=== PATIENT | male | born 1950 | race Caucasian/White ===

== ENCOUNTER → 2019-04-06 15:34 | Outpatient (CLI) | payer MEDICARE, OTHER, SELFPAY ==
--- NOTE | ~2019-04-06 | MR_ITS ---
EXAMINATION: MR brain/brain stem wo con EXAM DATE: 04/06/2019 16:27 INDICATION: Migraine frontal headaches. TECHNIQUE: Magnetic resonance imaging (MRI) of the brain/brain stem obtained without contrast. Sagitt al T1, axial diffusion, gradient echo (T2*), T1, T2, FLAIR sequences obtained. There is no prior st udy for comparison. FINDINGS: There are no areas of restricted diffusion to suggest acute infarction. There is no acute hemorrhage seen on the T2*, a hemosiderin sensitive sequence. No intraparenchymal brain mass lesion. There is mild periventricular and subcortical T2/FLAIR signal hyperintensity, nonspecific but probab ly related to small vessel ischemic disease (microangiopathy). There is mild prominence of the sulc i and ventricles related to cerebral atrophy. There are no extra-axial collections. Flow voids are seen in the cerebral arteries on the T2-weighted sequences consistent with their expected patency. The orbits are unremarkable. Soft tissue is unremarkable. Mild left ethmoid mucoperiosteal thickeni ng. IMPRESSION: 1. No acute intracranial findings. 2. Chronic age related findings. Reviewed, dictated and finalized at location B. FICIAL LIMB FITTER
== END ==
PROVIDERS: PCP Family Medicine; Visit Provider Physician Assistant
DX: G43.909 Migraine, unspecified, not intractable, without status migrainosus (principal)
CPT/HCPCS: 70551

== ENCOUNTER 2019-07-25 10:57 | Outpatient (CLI) | payer MEDICARE, OTHER, SELFPAY ==
[2019-07-25 12:05] LABS: Alanine Aminotransferase 108 U/L (4-50); Albumin Level 4.7 g/dL (3.5-5.1); Alkaline Phosphatase 99 U/L (38-126); Aspartate Amino Transferase 100 U/L (17-59); Bilirubin,Total 0.8 mg/dL (0.2-1.3); Blood Urea Nitrogen 15 mg/dL (9-20); Calcium 9.5 mg/dL (8.4-10.2); Carbon Dioxide 31 mmol/L (22-30); Chloride 99 mmol/L (98-107); Estimated Glomerular Filt Rate > 60; Glucose 123 mg/dL (75-110); Potassium 3.9 mmol/L (3.4-5.0); Sodium 137 mmol/L (137-145)
[2019-07-25 12:26] LABS: Hemoglobin A1C 7.4 % (<5.7)
== END 2019-07-25 10:58 | disposition home or self-care (01) ==
LOC: ANHLAB 11:00
PROVIDERS: PCP Family Medicine; Visit Provider Family Medicine
DX: E11.9 Type 2 diabetes mellitus without complications (principal)
CPT/HCPCS: 36415; 80053; 83036

== ENCOUNTER 2019-08-01 12:08 | Outpatient (CLI) | payer MEDICARE, OTHER, SELFPAY ==
[2019-08-01 14:26] LABS: Alanine Aminotransferase 104 U/L (4-50); Albumin Level 4.8 g/dL (3.5-5.1); Alkaline Phosphatase 82 U/L (38-126); Aspartate Amino Transferase 91 U/L (17-59); Bilirubin,Total 0.8 mg/dL (0.2-1.3)
== END 2019-08-01 12:09 | disposition home or self-care (01) ==
PROVIDERS: PCP Family Medicine; Visit Provider Family Medicine
DX: R79.89 Other specified abnormal findings of blood chemistry (principal)
CPT/HCPCS: 36415; 80076

== ENCOUNTER 2019-08-08 10:36 | Outpatient (CLI) | payer MEDICARE, OTHER, SELFPAY ==
[2019-08-08 11:34] LABS: Hematocrit 44.2 % (42.0-52.0); Hemoglobin 14.9 g/dL (14.0-18.0); Mean Corpuscular HGB Conc 33.7 g/dl (32-36); Mean Corpuscular Hemoglobin 30.7 pg (26-34); Mean Corpuscular Volume 91.1 fl (80-100); Mean Platelet Volume 10.6 fl (7.4-10.4); Platelet Count Result 289 k/mm3 (150-375); Red Blood Count 4.85 M/mm3 (4.6-6.20); Red Cell Distribution Width 14.2 % (11.5-14.5); White Blood Count 11.9 K/mm3 (4.5-10.0)
[2019-08-08 11:40] LABS: Alanine Aminotransferase 93 U/L (4-50); Albumin Level 4.7 g/dL (3.5-5.1); Alkaline Phosphatase 94 U/L (38-126); Aspartate Amino Transferase 69 U/L (17-59); Bilirubin,Total 0.9 mg/dL (0.2-1.3); Blood Urea Nitrogen 15 mg/dL (9-20); Calcium 9.4 mg/dL (8.4-10.2); Carbon Dioxide 29 mmol/L (22-30); Chloride 100 mmol/L (98-107); Estimated Glomerular Filt Rate > 60; Glucose 129 mg/dL (75-110); Potassium 3.6 mmol/L (3.4-5.0); Sodium 137 mmol/L (137-145)
[2019-08-08 12:10] LABS: Thyroid Stimulating Hormone 0.848 uIU/mL (0.465-4.680)
[2019-08-08 12:41] LABS: Creatinine Urine 62.6 mg/dL
[2019-08-08 12:50] LABS: Hepatitis B Surface Antigen Negative (Negative)
[2019-08-08 12:56] LABS: HAV RESULT Negative (Negative); Hepatitis B Core IgM Result Negative (Negative)
[2019-08-08 13:02] LABS: MALB Creatinine Ratio < 9.6 mg/g (0-30); Microalbumin Urine Random < 6.0 mg/L (0-16.7)
[2019-08-08 13:07] LABS: Hepatitis C Virus Antibody Negative (Negative)
== END 2019-08-08 10:37 | disposition home or self-care (01) ==
PROVIDERS: Internal Medicine; Physician Assistant; PCP Family Medicine; Visit Provider Family Medicine
DX: R94.5 Abnormal results of liver function studies (principal); R60.0 Localized edema; E11.43 Type 2 diabetes mellitus with diabetic autonomic (poly)neuropathy; I10 Essential (primary) hypertension
CPT/HCPCS: 36415; 80053; 80074; 82043; 82248; 84443; 85027

== ENCOUNTER 2019-08-10 07:49 | Outpatient (CLI) | payer MEDICARE, OTHER, SELFPAY ==
[2019-08-10 12:04] LABS: Total Volume 24 Hour Urine 1050 ml
[2019-08-10 12:09] LABS: Total Protein Urine 24 Hr 115 MG/DAY (28-141); Total Protein Urine Random 11 mg/dL
[2019-08-10 12:16] LABS: Creatinine Urine 79.6 mg/dL; Specific Gravity Ur 1.011
[2019-08-10 12:17] LABS: Creatinine 24 Hour Urine 0.8 gm/24 (1.0-2.0); Total Volume 24 Hour Urine 1050 ml
== END 2019-08-10 07:50 | disposition home or self-care (01) ==
PROVIDERS: PCP Family Medicine; Visit Provider Internal Medicine
DX: R94.5 Abnormal results of liver function studies (principal); R60.0 Localized edema; E11.43 Type 2 diabetes mellitus with diabetic autonomic (poly)neuropathy; I10 Essential (primary) hypertension
CPT/HCPCS: 81050; 82570; 84156

== ENCOUNTER 2020-02-02 09:07 | Emergency (ER) | payer MEDICARE, OTHER, SELFPAY ==
[2020-02-02 09:19] VITALS: BP 145/77; PULSE 82; RESP 16; TEMP 36.5; O2SAT 98
--- NOTE | 2020-02-02 09:27 | ED.URI ---
HPI - URI/Sore Throat General Chief Complaint: Upper Respiratory Infection Stated Complaint: Cold Time Seen by Provider: 02/02/20 09:27 Source: patient and RN notes reviewed Mode of arrival: ambulatory Limitations: no limitations History of Present Illness HPI Narrative: 69-year-old male who presents to express care with complaints of cough with expectoration of yellow green mucous for the past week with some runny nose. Patient states that he went outside on day when weather had warmed some with a t shirt on and was outside for about 30 minutes and has developed these symptoms. Patient states that he has not had a know fever, chills or sweats. Patient denies any shortness of breath or wheezing, denies any sore throat or any ear pain. Patient voices concern with getting his ill due to her having bone cancer and is immunocompromised. He states that he goes to grocery store masked but does not go out anywhere else and has been wearing mask also around his spouse. MD elicited complaint: cough, rhinorrhea and other (chest congestion) Pertinent past history: seasonal allergies and other (TACHO) Onset (ago): week(s) (1) Consistency: progressively worsening Severity: moderate Description of mucous: yellow and green Able to tolerate fluids by mouth: Yes Exacerbating factors: exertion Relieving factors: nothing Context: other (outside underdressed) Associated symptoms: rhinorrhea and cough (productive) Treatments prior to arrival: other (Nyquil) Related Data Home Medications Medication Instructions Recorded Confirmed acetaminophen 300 mg-codeine 30 mg 1 tablet PO Q6H PRN 03/28/19 07/25/19 tablet amlodipine 5 mg tablet 5 mg PO DAILY 03/28/19 07/25/19 aspirin 325 mg tablet 325 mg PO DAILY 03/28/19 07/25/19 atenolol 25 mg tablet 25 mg PO DAILY 03/28/19 07/25/19 atorvastatin 10 mg tablet 10 mg PO DAILY 03/28/19 07/25/19 cholecalciferol (vitamin D3) 125 5,000 unit PO DAILY 03/28/19 07/25/19 mcg (5,000 unit) tablet hydrochlorothiazide 25 mg tablet 25 mg PO DAILY 03/28/19 07/25/19 lisinopril 40 mg tablet 40 mg PO DAILY 03/28/19 07/25/19 aripiprazole mg 02/02/20 metformin mg PO 02/02/20 Allergies Allergy/AdvReac Type Severity Reaction Status Date / Time shellfish derived Allergy Unknown Hives Verified 07/25/19 10:31 Review of Systems Review of Systems: Narrative: CONSTITUTIONAL: Denies fever, chills, or sweats. EYES: Denies visual changes, redness, or discharge. ENT: Positive rhinorrhea, congestion,no sore throat, or otalgia. CARDIOVASCULAR: Denies chest pain, palpitations, or edema. RESPIRATORY: Positive productive cough denies dyspnea. GASTROINTESTINAL: Denies abdominal pain, nausea, vomiting, or diarrhea. GENITOURINARY: Denies dysuria or hematuria. SKIN: Denies rash or itching. MUSCULOSKELETAL: History of back pain, joint pain, or myalgia. NEUROLOGIC: Denies headache, numbness, or weakness. PSYCHIATRIC: Positive history of anxiety or depression. All systems reviewed & are unremarkable except as noted in HPI and below PMFSH Past Medical History Medical History (Updated 02/02/20 @ 10:20 by Pooja Higuera NP) Anxiety and depression Dizziness Factor V deficiency Hyperlipidemia Hypertension, essential, benign Migraines TACHO (obstructive sleep apnea) Seasonal allergies Surgical History Surgical History (Updated 02/02/20 @ 10:20 by Pooja Higuera NP) History of spinal surgery Family History Family History Father Hypertension Patient's father is in good health Sibling Patient's sister is in good health Patient's brother is in good health Mother Family history of cardiovascular disease Grandparent Hypertension Family history of malignant neoplasm Social History Social History (Updated 02/02/20 @ 10:21 by Pooja Higuera NP) Smoking status: Former smoker Smoking end date: 02/07/1967 Alcohol intake: never Substance use: never Substance
== END 2020-02-02 10:01 | disposition home or self-care (01) ==
PROVIDERS: Emergency Provider Registered Nurse; PCP Internal Medicine
DX: J06.9 Acute upper respiratory infection, unspecified (principal); Z20.828 Contact with and (suspected) exposure to other viral communicable diseases; Z87.891 Personal history of nicotine dependence; G47.33 Obstructive sleep apnea (adult) (pediatric); E78.5 Hyperlipidemia, unspecified; I10 Essential (primary) hypertension; D68.2 Hereditary deficiency of other clotting factors
CPT/HCPCS: 99213; G0463

== ENCOUNTER 2020-08-15 08:50 | Outpatient (CLI) | payer MEDICARE, OTHER, SELFPAY ==
[2020-08-15 09:28] LABS: Add Urine Microscopic? YES; Appearance Urine Clear (Clear); Bilirubin Urine Negative (Negative); Blood Urine Negative (Negative); Color Urine Yellow (Yellow); Glucose Urine UA Negative (Negative); Ketones Urine Negative (Negative); Leukocyte Esterase Ur Negative LEU/UL (Negative); Mucus Urine Few /lpf; Nitrate Urine Negative (Negative); Protein Urine Negative (Negative); RBC Urine 0-2 /hpf (0-2); Specific Grav Ur 1.019 (1.001-1.035); WBC Urine 0-3 /hpf
[2020-08-15 09:30] LABS: Basophils Absolute Auto 0.1 K/mm3 (0.0-0.1); Basophils Percent Auto 0.9 % (0.2-1.2); Eosinophils Absolute Auto 0.6 K/mm3 (0-0.3); Eosinophils Percent Auto 5.3 % (0-4.4); Hematocrit 46.1 % (42.0-52.0); Hemoglobin 15.4 g/dL (14.0-18.0); Immature Granulocyte Absolute 0.03 K/mm3 (0.00-0.031); Immature Granulocyte Percent A 0.3 % (0-0.5); Lymphocytes Absolute Auto 3.98 K/mm3 (0.9-3.2); Mean Corpuscular HGB Conc 33.4 g/dl (32-36); Mean Corpuscular Hemoglobin 31.2 pg (26-34); Mean Corpuscular Volume 93.3 fl (80-100); Mean Platelet Volume 10.6 fl (7.4-10.4); Monocytes Absolute Auto 0.9 K/mm3 (0.1-0.6); Monocytes Percent Auto 7.8 % (2.6-8.5); Neutrophils Absolute Auto 6.1 K/mm3 (1.3-6.7); Neutrophils Percent Auto 51.7 % (45.5-73.1); Platelet Count Result 247 k/mm3 (150-375); Red Blood Count 4.94 M/mm3 (4.6-6.20); Red Cell Distribution Width 13.6 % (11.5-14.5); White Blood Count 11.7 K/mm3 (4.5-10.0)
[2020-08-15 09:34] LABS: Alanine Aminotransferase 110 U/L (4-50); Albumin Level 4.6 g/dL (3.5-5.1); Alkaline Phosphatase 115 U/L (38-126); Anion Gap 10 mmol/L (8-16); Aspartate Amino Transferase 78 U/L (17-59); Bilirubin,Total 1.3 mg/dL (0.2-1.3); Blood Urea Nitrogen 17 mg/dL (9-20); Calcium 9.6 mg/dL (8.4-10.2); Carbon Dioxide 29 mmol/L (22-30); Chloride 98 mmol/L (98-107); Cholesterol 155 mg/dL (0-200); Estimated Glomerular Filt Rate > 60; Glucose 159 mg/dL (75-110); HDL Direct 35 mg/dL; Potassium 4.2 mmol/L (3.4-5.0); Sodium 137 mmol/L (137-145); Triglycerides 188 mg/dL (<150)
[2020-08-15 09:45] LABS: LDL Cholesterol Direct 71 mg/dL
== END 2020-08-15 08:51 | disposition home or self-care (01) ==
LOC: ANHLAB 08:53
PROVIDERS: PCP Internal Medicine; Visit Provider Internal Medicine
DX: E11.9 Type 2 diabetes mellitus without complications (principal); I10 Essential (primary) hypertension
CPT/HCPCS: 36415; 80053; 80061; 81001; 84443; 85025

== ENCOUNTER 2020-10-25 08:43 | Outpatient (CLI) | payer MEDICARE, OTHER, SELFPAY ==
[2020-10-25 09:17] LABS: Basophils Absolute Auto 0.1 K/mm3 (0.0-0.1); Basophils Percent Auto 1.1 % (0.2-1.2); Eosinophils Absolute Auto 0.8 K/mm3 (0-0.3); Eosinophils Percent Auto 6.2 % (0-4.4); Hematocrit 47.3 % (42.0-52.0); Hemoglobin 16.1 g/dL (14.0-18.0); Immature Granulocyte Absolute 0.05 K/mm3 (0.00-0.031); Immature Granulocyte Percent A 0.4 % (0-0.5); Lymphocytes Absolute Auto 3.75 K/mm3 (0.9-3.2); Lymphocytes Percent Auto 28.9 % (18.3-44.2); Mean Corpuscular Hemoglobin 31.5 pg (26-34); Mean Corpuscular Volume 92.6 fl (80-100); Mean Platelet Volume 10.6 fl (7.4-10.4); Monocytes Absolute Auto 1.2 K/mm3 (0.1-0.6); Monocytes Percent Auto 9.2 % (2.6-8.5); Neutrophils Percent Auto 54.2 % (45.5-73.1); Platelet Count Result 300 k/mm3 (150-375); Red Blood Count 5.11 M/mm3 (4.6-6.20); Red Cell Distribution Width 13.6 % (11.5-14.5)
[2020-10-25 09:25] LABS: Chloride 98 mmol/L (98-107)
[2020-10-25 09:43] LABS: Platelet Estimate Adequate (Adequate)
[2020-10-25 09:44] LABS: Atypical Lymphocytes Present
[2020-10-25 09:54] LABS: Alanine Aminotransferase 40 U/L (4-50); Albumin Level 4.7 g/dL (3.5-5.1); Alkaline Phosphatase 103 U/L (38-126); Anion Gap 12 mmol/L (8-16); Aspartate Amino Transferase 41 U/L (17-59); Bilirubin,Total 0.9 mg/dL (0.2-1.3); Blood Urea Nitrogen 16 mg/dL (9-20); Calcium 9.9 mg/dL (8.4-10.2); Carbon Dioxide 30 mmol/L (22-30); Estimated Glomerular Filt Rate > 60; Glucose 115 mg/dL (65-110); Potassium 4.6 mmol/L (3.4-5.0); Sodium 140 mmol/L (137-145)
== END 2020-10-25 08:44 | disposition home or self-care (01) ==
PROVIDERS: PCP Family Medicine; Visit Provider Physician Assistant
DX: K76.0 Fatty (change of) liver, not elsewhere classified (principal); E11.9 Type 2 diabetes mellitus without complications; D72.829 Elevated white blood cell count, unspecified
CPT/HCPCS: 36415; 80053; 85025

== ENCOUNTER 2020-11-18 11:28 | Outpatient (CLI) | payer MEDICARE, OTHER, SELFPAY ==
[2020-11-18 12:29] LABS: Alanine Aminotransferase 45 U/L (4-50); Albumin Level 4.8 g/dL (3.5-5.1); Alkaline Phosphatase 99 U/L (38-126); Anion Gap 9 mmol/L (8-16); Aspartate Amino Transferase 46 U/L (17-59); Blood Urea Nitrogen 13 mg/dL (9-20); CRP 2.2 mg/dL (<1.0); Calcium 9.8 mg/dL (8.4-10.2); Carbon Dioxide 30 mmol/L (22-30); Chloride 103 mmol/L (98-107); Estimated Glomerular Filt Rate > 60; Glucose 104 mg/dL (65-110); Potassium 4.4 mmol/L (3.4-5.0); Sodium 142 mmol/L (137-145)
[2020-11-18 13:20] LABS: Erythrocyte Sedimentation Rate 18 mm/hr (0-20)
== END 2020-11-18 11:29 | disposition home or self-care (01) ==
PROVIDERS: PCP Family Medicine; Visit Provider Internal Medicine Hematology & Oncology
DX: D72.829 Elevated white blood cell count, unspecified (principal)
CPT/HCPCS: 36415; 80053; 85652; 86140; 88184; 88185

== ENCOUNTER 2020-11-20 06:58 | Outpatient (CLI) | payer MEDICARE, OTHER, SELFPAY ==
[2020-11-20 07:33] LABS: Alanine Aminotransferase 38 U/L (4-50); Albumin Level 4.5 g/dL (3.5-5.1); Alkaline Phosphatase 87 U/L (38-126); Anion Gap 7 mmol/L (8-16); Aspartate Amino Transferase 36 U/L (17-59); Bilirubin,Total 1.1 mg/dL (0.2-1.3); Blood Urea Nitrogen 15 mg/dL (9-20); Calcium 9.7 mg/dL (8.4-10.2); Carbon Dioxide 31 mmol/L (22-30); Chloride 99 mmol/L (98-107); Cholesterol 155 mg/dL (0-200); Estimated Glomerular Filt Rate > 60; Glucose 166 mg/dL (65-110); HDL Direct 34 mg/dL; Potassium 3.8 mmol/L (3.4-5.0); Sodium 137 mmol/L (137-145); Triglycerides 175 mg/dL (<150)
[2020-11-20 07:45] LABS: LDL Cholesterol Direct 79 mg/dL
[2020-11-20 07:54] LABS: Hemoglobin A1C 5.9 % (<5.7)
== END 2020-11-20 06:59 | disposition home or self-care (01) ==
PROVIDERS: PCP Family Medicine; Visit Provider Internal Medicine
DX: E78.5 Hyperlipidemia, unspecified (principal); E11.9 Type 2 diabetes mellitus without complications
CPT/HCPCS: 36415; 80053; 80061; 83036

== ENCOUNTER 2021-11-20 08:05 | Outpatient (CLI) | payer MEDICARE, OTHER, SELFPAY ==
--- NOTE | ~2021-11-20 | US_ITS ---
EXAMINATION: US right upper quadrant DATE: 11/20/2021 08:33 INDICATION: Abnormal liver enzymes TECHNIQUE: Multiple grayscale and Doppler ultrasound images of the abdomen were obtained. COMPARISON: 08/25/2018 FINDINGS: Bowel gas obscures visualization of the pancreas. The visualized portions of the pancreas a re unremarkable. The liver demonstrates increased echogenicity, heterogenous echotexture, and decreas ed through transmission. No surface nodularity. Normal hepatopetal flow in the main portal vein. Ston es are present in the nondistended gallbladder. There is no gallbladder wall thickening or pericholec ystic fluid. The normal common bile duct measures 3 mm. There was no sonographic Maria sign. IMPRESSION: 1. Cholelithiasis without evidence of cholecystitis. 2. Diffuse hepatic steatosis. Reviewed, dictated and finalized at location F.
== END 2021-11-20 08:06 | disposition home or self-care (01) ==
PROVIDERS: PCP Family Medicine; Visit Provider Internal Medicine
DX: R74.8 Abnormal levels of other serum enzymes (principal); K80.50 Calculus of bile duct without cholangitis or cholecystitis without obstruction; K76.0 Fatty (change of) liver, not elsewhere classified
CPT/HCPCS: 76705

== ENCOUNTER 2021-11-25 07:05 | Outpatient (CLI) | payer MEDICARE, OTHER, SELFPAY ==
[2021-11-25 09:37] LABS: Hepatitis B Surface Antigen Negative (Negative)
[2021-11-25 09:42] LABS: HAV RESULT Negative (Negative); Hepatitis B Core IgM Result Negative (Negative)
[2021-11-25 09:54] LABS: Hepatitis C Virus Antibody Negative (Negative)
== END 2021-11-25 07:06 | disposition home or self-care (01) ==
PROVIDERS: PCP Family Medicine; Visit Provider Internal Medicine
DX: R79.89 Other specified abnormal findings of blood chemistry (principal); R94.5 Abnormal results of liver function studies
CPT/HCPCS: 36415; 80074

== ENCOUNTER 2022-01-18 14:54 | Outpatient (CLI) | payer MEDICARE, OTHER, SELFPAY ==
--- NOTE | ~2022-01-18 | XR_ITS ---
EXAM: XR hip LT min 2V DATE: 01/18/2022 15:21 HISTORY: M25.552 - Pain in left hip, FALL Dec . COMPARISON: None available. FINDINGS: Partially visualized lumbar fusion hardware. Iliac surgical clips. Decreased mineralizatio n. No fracture or dislocation. No lytic or blastic lesion. Mild left hip osteoarthritis and pelvic en thesopathy. No erosion or periosteal change. Soft tissues within normal limits. IMPRESSION: Mild left hip osteoarthritis. Reviewed, dictated and finalized at location K. BER TENDER
== END 2022-01-18 14:55 | disposition home or self-care (01) ==
PROVIDERS: PCP Family Medicine; Visit Provider Nurse Practitioner Family
DX: M17.12 Unilateral primary osteoarthritis, left knee (principal)
CPT/HCPCS: 73502

== ENCOUNTER 2022-01-23 12:35 | Emergency (ER) | payer MEDICARE, OTHER, SELFPAY ==
[2022-01-23 12:35] VITALS: BP 178/91; PULSE 88; RESP 18; TEMP 36.4; O2SAT 98
--- NOTE | 2022-01-23 13:48 | ED.LOWEXIN ---
HPI - Extremity Injury (Lower) General Chief Complaint: Extremity Injury, Lower Stated Complaint: buttock pain, foot numb Time Seen by Provider: 01/23/22 13:37 History of Present Illness HPI Narrative: Patient is a 71-year-old male presenting with lower back pain. Patient states that he fell approximately a month ago and has been having left hip pain since that time. He was seen by his PCP a week or 2 ago and hip x-rays were obtained which were unremarkable. He has been doing okay until this morning when he woke up he had lower back pain that radiates into his left buttocks and down his left leg. States that there is also numbness that radiates down his leg from the same area. He denies any weakness. States that walking is difficult due to the pain. He denies saddle anesthesia, bladder or bowel incontinence, IV drug use, fevers. States that he took ibuprofen and an oxycodone approximately 3 hours ago with minimal relief. He denies headache, numbness weakness, vision changes, chest pain, shortness of breath, abdominal pain, leg swelling. Related Data Home Medications Medication Instructions Recorded Confirmed acetaminophen 300 mg-codeine 30 mg 1 tablet PO Q6H PRN 03/28/19 12/03/21 tablet (Tylenol-Codeine #3) aspirin 325 mg tablet 325 mg PO DAILY 03/28/19 12/03/21 atenolol 25 mg tablet 25 mg PO DAILY 03/28/19 12/03/21 cholecalciferol (vitamin D3) 125 5,000 unit PO DAILY 03/28/19 12/03/21 mcg (5,000 unit) tablet hydrochlorothiazide 25 mg tablet 25 mg PO DAILY 03/28/19 12/03/21 semaglutide 7 mg tablet (Rybelsus) 7 mg PO DAILY 10/08/20 12/03/21 atorvastatin 40 mg tablet 40 mg PO DAILY 12/03/21 12/03/21 bupropion HCl 150 mg 24 hr tablet, 150 mg PO BID 12/03/21 12/03/21 extended release Allergies Allergy/AdvReac Type Severity Reaction Status Date / Time shellfish derived Allergy Unknown Hives Verified 01/23/22 12:49 Review of Systems Review of Systems: All systems reviewed & are unremarkable except as noted in HPI and below PMFSH Past Medical History Medical History Anxiety and depression Dizziness Factor V deficiency Hyperlipidemia Hypertension, essential, benign Migraines TACHO (obstructive sleep apnea) Seasonal allergies Surgical History Surgical History History of spinal surgery Family History Family History Father Hypertension Patient's father is in good health Sibling Patient's sister is in good health Patient's brother is in good health Mother Family history of cardiovascular disease Grandparent Hypertension Family history of malignant neoplasm Social History Social History Smoking status: Never smoker Tobacco type: cigarettes Second hand tobacco smoke exposure: No Smoking end date: 02/07/1967 Alcohol intake: never Substance use: never Substance use type: does not use Gender identity (if verbalized by the patient): Male Sexual Orientation (if Verbalized by the Patient): Straight or Heterosexual Exam Narrative: GENERAL: Well-appearing, well-nourished, and in no acute distress. HEAD: Normocephalic, atraumatic. EYES: PERRLA and EOMI. ENT: Nares clear, no rhinorrhea or epistaxis. Mucous membranes moist. NECK: Supple. CHEST: Clear to auscultation. No respiratory distress. HEART: Regular rate and rhythm. No murmur heard. Normal peripheral pulses. ABDOMEN: Soft, nontender, nondistended, normal active bowel sounds. EXTREMITIES: Normal range of motion. No edema. SKIN: Warm, dry, no rash. NEURO: No focal deficits. Alert and oriented x3. No sensory deficits of either lower extremity, 5 out of 5 strength in all extremities, +straight leg test PSYCH: Normal mood and affect. Course Vital Signs Vital signs: Vital Signs Temperature 97.6 F 12
[2022-01-23] MEDS: KETOROLAC 30 MG/ML VIAL (*BKC) IM (14:03)
[2022-01-23] MEDS: LIDOCAINE 5% PATCH 1 PATCH TRANSDERM (14:03)
[2022-01-23] MEDS: predniSONE 20 MG TABLET 60 MG PO (14:04)
[2022-01-23 14:14] VITALS: BP 198/95; PULSE 86; RESP 18; O2SAT 98
[2022-01-23] MEDS: HYDROcodone/acetaminophen (*CRX) 5-325 MG TABLET 1 TAB PO (16:20)
[2022-01-23 17:58] VITALS: BP 166/96; PULSE 80; RESP 18; O2SAT 98
== END 2022-01-23 18:18 | disposition home or self-care (01) ==
PROVIDERS: Emergency Provider Emergency Medicine; PCP Family Medicine
DX: M54.42 Lumbago with sciatica, left side (principal); D68.51 Activated protein C resistance; Z87.891 Personal history of nicotine dependence; Z79.82 Long term (current) use of aspirin
CPT/HCPCS: 96372; 99283; A9270; J1885; J7512

== ENCOUNTER 2022-02-16 09:52 | Outpatient (CLI) | payer MEDICARE, OTHER, SELFPAY ==
--- NOTE | ~2022-02-16 | MR_ITS ---
EXAMINATION: MR hip LT wo con DATE: 02/16/2022 11:00 INDICATION: Left hip pain and weakness post fall TECHNIQUE: Magnetic resonance imaging (MRI) of the left hip was performed without intravenous contra st. Sequences included full-field axial PD-weighted FS FSE and T1-weighted FSE, coronal of the pelvis with PD-weighted FS FSE, T2-weighted FSE and T1-weighted FSE, small field of view of the left hip w ith axial PD-weighted FS FSE, sagittal PD-weighted FS FSE, coronal PD-weighted FS FSE and coronal T2 weighted FSE. Additional radial T1-weighted FGR oriented orthogonal to the acetabular rim were obtai ana for evaluation of the labrum. COMPARISON: None FINDINGS: Bones/labrum/cartilage: Alignment is normal. No fracture, avascular necrosis or pathologic marrow replacing process. Metalli c magnetic field artifact associate with anterior plate and screw fixation for and L4-S1 anterior spi nal fusion. Mild bilateral sacroiliac osteoarthritis. Minimal bilateral hip osteoarthritis. There is a of the anterior to posterior superior left acetabular labrum. Right acetabular labrum appears gross ly intact but is not diagnostically evaluated on the larger [id number] images. Fluid: Symmetric physiologic amount of fluid within both hip joints. Soft tissues: Normal and symmetric muscle bulk and signal in the pelvis and visualized proximal thighs. There is mi ld right gluteus medius bursitis with mild gluteus medius tendinopathy without tear. The bilateral il iopsoas and remaining gluteal tendons are normal. Mild tendinopathy without tear bilaterally at the i schial tuberosity origins of the conjoined biceps femoris/semitendinosus tendons, right greater than left. Prostatomegaly. Limited evaluation of visceral organs of the pelvis is otherwise unremarkable. Small fat-containing umbilical hernia. No pathologically enlarged pelvic/inguinal lymphadenopathy. IMPRESSION: 1. Tear of the anterior to posterior superior left acetabular labrum. No fracture. 2. Mild right gluteus medius tendinopathy with associated mild tendinopathy without tear. 3. Mild tendinopathy without discrete tear at the bilateral ischial tuberosity origins of the conjoin ed biceps femoris/semitendinosus tendons, right greater than left. 4. Prostatomegaly. Reviewed, dictated and finalized at location A. TION ASSISTANT IMPRESSION: 1. Tear of the anterior to posterior superior left acetabular labrum. No fractu re. 2. Mild right gluteus medius tendinopathy with associated mild tendinopathy wit hout tear. 3. Mild tendinopathy without discrete tear at the bilateral ischial tuberosity origins of the conjoined biceps femoris/semitendinosus tendons, right greater t jimenez left. 4. Prostatomegaly.
== END 2022-02-16 09:53 | disposition home or self-care (01) ==
PROVIDERS: PCP Family Medicine; Visit Provider Physician Assistant
DX: M25.552 Pain in left hip (principal); N40.0 Benign prostatic hyperplasia without lower urinary tract symptoms
CPT/HCPCS: 73721; 97162

== ENCOUNTER 2022-03-23 11:00 | Outpatient (RCR) | payer MEDICARE, OTHER, SELFPAY ==
--- NOTE | 2022-02-16 13:30 | PTOPEVAL1 ---
Assessment and note entered by Sherry Angel, PT Evaluation Information Assessment Status Evaluation Diagnosis L hip pain, low back pain Onset Dec 29, 2021 Subjective Information fell on Dec 29, landed on L side, could not get up off the floor, had to call the Fire Dept; had x ray, which did not show any fractures, had MRI this AM; used a walker after fall and now using the cane all the time now--previously did not use; went to ER in Jan due to back pain and sciatica L leg; do not do any exercises for his back and has never had therapy on his back; Reported Pain Level Pain Score Self Report Additional Pain Score Comments range of pain in past week, 5-7/10; sharp pain lateral R and L hips; chronic pain over low back; intermittent into L posterior LE to heel; increase with walking 5-10 min; sitting is OK on firm surface with back support, cannot sit on soft , couch; decrease pain with ibuprofen, heat pad, resting; sleeping is not disrupted due to pain in hips or back; Assessment PT Clinical Summary Chuck has the diagnosis of L hip and back pain, increased after a fall, with intermittent pain into L LE to heel. He had an MRI of his hip this AM and results are not known yet. He has chronic back pain with 2 lumbar surgeries. History includes diabetes and HTN. He is using a cane for walking, has difficulty getting up from the chair and on stairs. Previously did not use an assistive device. With the evaluation: decreased walking tolerance to ~ 200' with the cane; weakness of R and L LE's, pain increased with supine R and L hip flexion & standing trunk extension; B hamstrings are tight. Skilled PT services are indicated for aquatic therapy to ease mobility with the warm water and bouyancy effect of the water; modalities to decrease pain and spasms; therapeutic exercises to increase trunk and LE flexibility and strength, with education for home exercises and posture. Plan of Care Interventions Aquatic Therapy,Electrical Stimulation,Gait Training,Hot Pack/Cold Pack,Manual Therapy, Mechanical Traction,Neuro Re-education,Patient/ Ca
--- NOTE | 2022-02-26 10:37 | PCPTNOTE ---
during today's treatment session, he reported he wants to do land therapy only, does not want aquatic therapy. His appointments are to be changed to all land.
--- NOTE | 2022-03-23 11:32 | PTOPDC ---
Assessment and note entered by Sherry Angel, PT Evaluation Information Assessment Status Discharge Diagnosis L hip pain, low back pain Onset Dec 29, 2021 Subjective Information Chuck reports: doing better- less pain, getting stronger, doing more; therapy has worked well for me; not using the cane anymore; not at 100% yet , moving slow and energy level is low, due to overall physical ability; since the fall that brought me here, feel like balance has not returned back to how it was; have fallen 1 time since starting therapy--turned too quickly and lost balance; Reported Pain Level Pain Score Self Report Additional Pain Score Comments pain range of 0-4/10; sore and stiff; both R and L lateral hps area of pain; Assessment PT Clinical Summary Chuck has received 11 PT sessions. Compared to the initial evaluation he has improved in all areas: pain at low and high ratings, was 5-7/10 and now 0-4/10; no longer using the cane; walking tolerance; R and L LE strength; hamstring flexibility; Education has been completed for HEP and safety with mobility. Goals were achieved. Discharge PT. He is to continue with his home exercises and increase activity level. Plan of Care PT Services Indicated No
== END 2022-03-23 11:48 | disposition home or self-care (01) ==
LOC: ANHPT 11:00
PROVIDERS: PCP Family Medicine; Visit Provider Physician Assistant
DX: M25.552 Pain in left hip (principal); M54.50 Low back pain, unspecified; G89.29 Other chronic pain
CPT/HCPCS: 97014; 97110; 97162; 97530; G0283

== ENCOUNTER 2022-03-25 10:55 | Outpatient (CLI) | payer MEDICARE, OTHER, SELFPAY ==
--- NOTE | ~2022-03-25 | XR_ITS ---
XR knee LT 2V 03/25/2022 11:17 Indication: Left knee pain Procedure: 2 views left knee Comparison: No prior studies for comparison. Findings: There is mild patellofemoral compartment osteoarthritis. There is a small loose body inferi or to the patellofemoral compartment. No fracture or traumatic malalignment. No significant joint eff usion. Normal mineralization. Impression: 1: Mild patellofemoral compartment osteoarthritis. Reviewed, dictated and finalized at location A. GRAPH TECHNICIAN Impression: 1: Mild patellofemoral compartment osteoarthritis.
== END 2022-03-25 10:56 | disposition home or self-care (01) ==
PROVIDERS: PCP Family Medicine; Visit Provider Nurse Practitioner Adult Health
DX: M25.569 Pain in unspecified knee (principal); M17.12 Unilateral primary osteoarthritis, left knee
CPT/HCPCS: 73560

== ENCOUNTER 2022-04-30 14:30 | Outpatient (RCR) | payer MEDICARE, OTHER, SELFPAY ==
--- NOTE | 2022-04-01 08:46 | PTOPEVAL1 ---
Assessment and note entered by Sherry Angel, PT Evaluation Information Assessment Status Evaluation Diagnosis L patella femoral pain and quad tendonitis Onset Dec 2021 Subjective Information fell Dec 29, landed on L side- knee pain since; first addressed sciatic pain after fall, had PT for back; xray of knee mild patella femoral OA; had injection few days ago--has helped pain; problems picking things up off the floor, bend knee to squat and knee gives out on stairs, cannot lead with L knee; Reported Pain Level Pain Score Self Report Additional Pain Score Comments pain range in past week, 2-7/10; sharp pain over superior patella; increased with squatting and stairs, decreased with injection few days ago, ibuprofen, tylenol 3 with codiene PRN, sit/rest; have used ice few times; knee is swollen; reinforced use of ice and elevation; reports tolerances: standing/walking 15 min at best; use cane PRN for walking; ALSO pain in R hip and low back: back pain is chronic, rating 5/10; Assessment PT Clinical Summary Chuck has the diagnosis of L patella femoral pain and quad tendonitis. His history includes chronic LBP and has just completed PT treatment for back pain. He reports the knee injection decreased his knee pain. Knee pain is increased with standing, walking, squatting and stair activities. He uses a cane PRN for knee and back pain. With the evaluation, he has lateral tracking patella, with L hip held in ER position; tenderness over superior and medial patellar areas and decreased strength of L hip and knee. There is tightness over his hamstrings. Some of the hip and knee strengthening activities increase his back pain. Skilled PT services are indicated for modalities to decrease pain and improve patellar tracking; therapeutic exercises to increase flexibility of hamstring and quads, with strengthening and education for home exercises and pain control. Monitor back pain during sessions. Plan of Care Interventions Electrical Stimulation,Hot Pack/Cold Pack,Manual Therapy,Neuro Re-education,Patient/Caregiver Education,Therapeutic Activities,Therapeutic
--- NOTE | 2022-04-30 14:46 | PTOPDC ---
Assessment and note entered by Sherry Angel, PT Evaluation Information Assessment Status Discharge Diagnosis L patella femoral pain and quad tendonitis Onset Dec 2021 Subjective Information Chuck reports: knee is better; Reported Pain Level Pain Score Self Report L knee pain Additional Pain Score Comments pain range of 0-2/10 in past week; R hip is giving him pain--going to get it checked out; walking time of 15-20 min; Assessment PT Clinical Summary Chuck has received 9 PT sessions. Compared to the initial eval: improved with: decrease pain rating from 2-7/10 to 0-2/10; no pain with active L knee flexion or extension motions; reported walking time from 15 to 20 minutes; increased strength L knee and hip; increased flexibility of hamstring; indep with HEP The goals were achieved, except single leg standing tolerance and 30 minute reported walking tolerance. Discharge PT services, pt is to continue with his HEP. Plan of Care PT Services Indicated No-- Discharge PT services
== END 2022-06-15 10:14 | disposition home or self-care (01) ==
LOC: ANHPT 14:30
PROVIDERS: PCP Family Medicine; Visit Provider Nurse Practitioner
DX: M25.562 Pain in left knee (principal)
CPT/HCPCS: 97110; 97112; 97140; 97161; 97530

== ENCOUNTER 2022-09-28 10:42 | Outpatient (CLI) | payer MEDICARE, OTHER, SELFPAY ==
[2022-09-28 11:38] LABS: Alanine Aminotransferase 22 U/L (6-50); Albumin Level 4.1 g/dL (3.5-5.1); Alkaline Phosphatase 110 U/L (38-126); Anion Gap 8 mmol/L (8-16); Aspartate Amino Transferase 25 U/L (17-59); Bilirubin,Total 0.8 mg/dL (0.2-1.3); Blood Urea Nitrogen 14 mg/dL (9-20); Carbon Dioxide 27 mmol/L (22-30); Chloride 100 mmol/L (98-107); Estimated Glomerular Filt Rate > 60; Glucose 159 mg/dL (65-110); Potassium 3.8 mmol/L (3.4-5.0); Sodium 135 mmol/L (137-145)
[2022-09-28 12:08] LABS: Thyroid Stimulating Hormone 0.931 uIU/mL (0.465-4.680)
[2022-09-28 12:31] LABS: Hemoglobin A1C 6.7 % (<5.7)
== END 2022-09-28 10:43 | disposition home or self-care (01) ==
PROVIDERS: PCP Family Medicine; Visit Provider Physician Assistant
DX: E11.9 Type 2 diabetes mellitus without complications (principal); I10 Essential (primary) hypertension
CPT/HCPCS: 36415; 80053; 83036; 84443

== ENCOUNTER 2022-12-06 14:15 | Outpatient (RCR) | payer MEDICARE, OTHER, SELFPAY ==
--- NOTE | 2022-10-18 13:25 | OPREHPOC ---
Outpatient Therapy Plan of Care This is a Multidisciplinary Plan of Care that may contain components documented by all disciplines (PT, OT, and ST.) PT Problem 1 PT Problem #1 Knowledge Deficit PT Goal 1 Goal 1* indep with HEP 2* demonstrate correct posture with exercises PT Problem 2 PT Problem #2 Pain PT Goal 1 Goal 1* pt report pain at worst of 3/10 R hip 2* pt report able to lie on R side in bed 15 minutes PT Problem 3 PT Problem #3 Impaired Strength PT Goal 1 Goal increase strength of R LE and trunk: 1* 20 reps of mat exercises 2* up/down stairs without any issues PT Problem 4 PT Problem #4 Impaired Flexibility PT Goal 1 Goal perform without an increase in pain R: 1* piriformis stretch in supine 2* supine hip IR 3* standing trunk flexion
--- NOTE | 2022-10-18 13:25 | PTOPEVAL1 ---
Assessment and note entered by Sherry Angel, PT Evaluation Information Assessment Status Evaluation Diagnosis R hip bursitis Onset Dec 2021 Subjective Information fell Dec 2021--moving too fast, had vertigo attack and fell to floor; xrays & CT negative for hip; had injection in hip, helped some, but pain returned; previously had same thing on L hip--had PT and it went away; does not recall what helped his hip. has had 3 falls in the past 6 months--going down stairs when full weight on R LE, leg collapsed; standing and turned to the L, fell down and walking stopped quickly, full wt on R leg and fell ACTIVITY: not using assistive device; cannot move very fast, problems getting up off floor--have to pull on furniture; retired; swing dancing-- not doing now; reports he is 100% disabled ; Reported Pain Level Pain Score Self Report Additional Pain Score Comments pain range in past week: R hip 1-5/10 pain lateral hip joint hurts; when pain is worse, goes up to R side of back increase pain with going down the stairs; lie on R side 5 minutes decrease pain: ibuprofen, sit/rest is taking tylenol with codiene for back--helps hip does not sleep well in general; Assessment PT Clinical Summary Chuck has the diagnosis of R hip bursitis. He reports onset after a fall in December 2021. In the past 6 months, reports he has had 3 falls. His medical history includes chronic low back pain 2 back surgeries, L hip bursitis. Pain is increased with full weight on R leg and lying on his R side in bed. And when his hip hurts, it goes into his low back and buttock. With the evaluation, he has postural changes in his back and trunk; weakness of R hip, compared to his L hip; tenderness with palpation over posterior-lateral hip, lumbar-sacral area; decreased flexibility of hamstring and piriformis muscles, with walking- decreased weight shift onto R LE. Skilled PT services are in
--- NOTE | 2022-11-16 09:48 | OPREHPOC ---
Outpatient Therapy Plan of Care This is a Multidisciplinary Plan of Care that may contain components documented by all disciplines (PT, OT, and ST.) PT Problem 1 PT Problem #1 Knowledge Deficit PT Goal 1 Goal 1* indep with HEP 2* demonstrate correct posture with exercises Progress Partially Met Comment 11-16-22 progress met goals continue with goals to progress education and HEP PT Problem 2 PT Problem #2 Pain PT Goal 1 Goal 1* pt report pain at worst of 3/10 R hip 2* pt report able to lie on R side in bed 15 minutes Progress Partially Met Comment 11-16-22 progress met goal 2 NEW GOAL 1* pain rating R hip 5/10 at worst PT Problem 3 PT Problem #3 Impaired Strength PT Goal 1 Goal increase strength of R LE and trunk: 1* 20 reps of mat exercises 2* up/down stairs without any issues Progress Not Met Comment 11-16-22 progress goals not met continue towards goals PT Problem 4 PT Problem #4 Impaired Flexibility PT Goal 1 Goal perform without an increase in pain R: 1* piriformis stretch in supine 2* supine hip IR 3* standing trunk flexion Progress Met Comment 11-16-22 progress met goals NEW GOAL: 1* supine R hamstring length with SLR 45'
--- NOTE | 2022-11-16 09:48 | PTOPPROG ---
Assessment and note entered by Sherry Angel, PT Evaluation Information Assessment Status Progress Diagnosis R hip bursitis Onset Dec 2021 Subjective Information doing better, less pain; everything therapist is doing helps; needs to continue with therapy some more sessions; PAIN: range in the past week 3-8/10; lateral R hip joint, dull pain; increase pain: stairs, sitting 1 hour- then have to get up decrease pain: walking; use ibuprofen for back and hip pain; heat can lie on his R side, do not know how long- wake up on his R side, but pain not wake him up Assessment PT Clinical Summary Chuck has received 9 PT sessions. He reports he is better and therapy is helping. Compared to the initial evaluation: pain rating was 1-5/10 and now 3-8/10; is now able to tolerate lying on his R hip; no longer has pain with supine R hip IR, piriformis stretch in supine or standing trunk flexion; supine R hip SLR and hip abduction reps of movements are about the same strength/within 2 reps of initial session. The goals were partially met Continue PT treatment to further decrease pain in R hip and increase strength. Plan of Care Interventions Electrical Stimulation,Hot Pack/Cold Pack,Manual Therapy,Neuro Re-education,Patient/Caregiver Educati,Therapeutic Activities,Therapeutic Exercise,Ultrasound,Other Other Interventions IASTM, taping PT Services Indicated Yes Treatment Frequency and 2x/wk for 3 weeks Duration These treatments will address the objective and functional deficits as defined above. The patient will be advanced safely and appropriately in order for the patient to progress towards his/her prior level of function. Additional exercises will be introduced and as well as a comprehensive home exercise program upon discharge, if needed, ?to ensure carryover of functional gains achieved in the clinic. This treatment plan has been reviewed and agreement upon by the patient.
--- NOTE | 2022-11-30 09:13 | PCPTNOTE ---
Addendum to 11/25/22 treatment: IFC electrical stimulation was performed with the same settings as previous session but did not get noted in documentation.
--- NOTE | 2022-12-06 15:07 | PTOPDC ---
Assessment and note entered by Sherry Angel, PT Evaluation Information Assessment Status Discharge Diagnosis R hip bursitis Onset Dec 2021 Subjective Information have been doing exercises; unbalanced on stairs; Dr Asencio told him last week he needed surgery on R hip bursa- he is retiring and wanted to refer him to another dr; pt does not want surgery on his hip; use the cane when going out places; Reported Pain Level Pain Score Self Report Additional Pain Score Comments pain range in the past week 1-4/10; R lateral hip pain and tight over lateral thigh increase with sitting decrease pain with ibuprofen 2x/day; can lie on R side in bed; is sleeping OK at night Assessment PT Clinical Summary Chuck has received 15 PT sessions. Compared to the last reevaluation: pain rating from 3-8/10 to 1-4/10; continues to have tenderness over mid to distal ITB and lateral hamstrings; increase strength with supine mat exercises; same with single leg standing tolerance; TUG and 2 minute walking tests were WNL; education complete for HEP and safety with walking. He continues to report issues with steps at home due to carpet and steep stairs; and reports unsteady with walking--is not using his cane and turns quickly with turning around. He also has low back pain. The goals were partially met. Discharge PT services; to continue with HEP. Plan of Care PT Services Indicated No
== END 2022-12-07 07:13 | disposition home or self-care (01) ==
LOC: ANHPT 14:15
PROVIDERS: PCP Family Medicine; Visit Provider Nurse Practitioner
DX: M70.61 Trochanteric bursitis, right hip (principal); M25.551 Pain in right hip
CPT/HCPCS: 97014; 97110; 97140; 97162; 97530; 97750; G0283

== ENCOUNTER 2023-05-19 09:32 | Outpatient (CLI) | payer MEDICARE, OTHER, SELFPAY ==
[2023-05-19 10:47] LABS: Hematocrit 48.4 % (42.0-52.0); Hemoglobin 15.9 g/dL (14.0-18.0)
[2023-05-26 18:49] LABS: Testosterone Total 391 ng/dL (250-1100)
[2023-06-13 07:35] LABS: Estradiol, Ultrasensitive 32
== END 2023-05-19 09:33 | disposition home or self-care (01) ==
LOC: ANHLAB 09:37
PROVIDERS: PCP Family Medicine; Visit Provider Urology
DX: E29.1 Testicular hypofunction (principal)
CPT/HCPCS: 36415; 82670; 84403; 85014; 85018

== ENCOUNTER 2024-01-19 15:09 | Outpatient (CLI) | payer MEDICARE, OTHER, SELFPAY ==
[2024-01-19 15:31] LABS: Hematocrit 44.5 % (42.0-52.0); Hemoglobin 14.5 g/dL (14.0-18.0)
[2024-01-24 15:23] LABS: Testosterone Total 216 ng/dL (250-1100)
[2024-01-29 01:44] LABS: Estradiol, Ultrasensitive 14 pg/mL (< OR = 29)
== END 2024-01-19 15:10 | disposition home or self-care (01) ==
PROVIDERS: PCP Family Medicine; Visit Provider Nurse Practitioner Family
DX: E29.1 Testicular hypofunction (principal)
CPT/HCPCS: 36415; 82670; 84403; 85014; 85018